=== PATIENT | male | born 1995 | race African-American/Black ===

== ENCOUNTER 2018-09-29 01:43 | Emergency (ER) | payer SELFPAY ==
[~2018-09-29] VITALS: Ht 185.4 cm; Wt 66.0 kg
[2018-09-29] MEDS ORDERED: KETOROLAC 60MG/2ML VIAL IM STA (06:30)
[2018-09-29 07:06] VITALS: BP 124/63
== END 2018-09-29 08:08 | disposition home or self-care (01) ==
LOC: ER 01:43
DX: M25.461 Effusion, right knee (principal); S80.01XA Contusion of right knee, initial encounter; F17.210 Nicotine dependence, cigarettes, uncomplicated; X58.XXXA Exposure to other specified factors, initial encounter; Y93.89 Activity, other specified; Y92.018 Other place in single-family (private) house as the place of occurrence of the external cause
CPT/HCPCS: 73562; 96372; 99283; J1885; Z7610

== ENCOUNTER 2019-06-13 01:15 | Emergency (ER) | payer MEDICAID ==
[~2019-06-13] VITALS: Ht 185.4 cm; Wt 69.0 kg
[2019-06-13] MEDS ORDERED: HYDROCODONE/ACETAMINOPHEN 5/325MG TABLET PO ONE (02:00)
[2019-06-13] MEDS ORDERED: KETOROLAC 30MG/ML VIAL IM ONE (02:00)
[2019-06-13 03:12] VITALS: BP 118/69
== END 2019-06-13 03:24 | disposition home or self-care (01) ==
LOC: ER 01:15
DX: M25.562 Pain in left knee (principal); F12.10 Cannabis abuse, uncomplicated
CPT/HCPCS: 29505; 73562; 96372; 99283; J1885

== ENCOUNTER 2021-10-01 08:47 | Emergency (ER) | payer MEDICAID ==
[~2021-10-01] VITALS: Ht 185.4 cm; Wt 69.0 kg
[2021-10-01 08:59] VITALS: BP 119/81
[2021-10-01] MEDS ORDERED: LIDOCAINE 5% PATCH TOP SCH (09:15)
[2021-10-01] MEDS ORDERED: METHOCARBAMOL 750MG TABLET PO SCH (09:15)
[2021-10-01] MEDS ORDERED: KETOROLAC 60MG/2ML VIAL IM ONE (09:15)
[2021-10-01] MEDS ORDERED: METH-653 MT (10:52)
[2021-10-01] MEDS ORDERED: IBUP-2028 MT (10:52)
[2021-10-01] MEDS ORDERED: LIDO1ADH23 TP (10:52)
== END 2021-10-01 11:22 | disposition home or self-care (01) ==
LOC: ER 08:47
DX: M54.50 Low back pain, unspecified (principal); F12.10 Cannabis abuse, uncomplicated
CPT/HCPCS: 99281

== ENCOUNTER 2024-03-10 10:36 | Emergency (ER) | payer MEDICAID ==
[~2024-03-10] VITALS: Ht 182.9 cm; Wt 75.0 kg
[~2024-03-10 10:36] MED LIST: IBUP-2028 MT; LIDO1ADH23 TP; METH-653 MT
[2024-03-10 10:46] VITALS: O2SAT 99
[2024-03-10 11:51] LABS: CHLORIDE 107 mEq/L (98-107); SODIUM 140 mEq/L (136-145)
[2024-03-10 11:52] LABS: CALCIUM 9.9 mg/dL (8.7-10.4); CARBON DIOXIDE 28 mEq/L (21-32)
[2024-03-10 11:53] LABS: BASOPHILS % 1.5 % (0.0-2.0); DIFFERENTIAL COMMENT 0; EOSINOPHILS % 0.8 % (0.0-5.0); HEMATOCRIT. 42.2 % (42.0-52.0); LYMPHOCYTES % 24.3 % (20.0-50.0); MEAN CORPUSCULAR HEMOGLOBIN 33.5 pg (28.0-32.0); MEAN CORPUSCULAR HGB CONC 33.2 g/dL (31.0-37.0); MEAN CORPUSCULAR VOLUME 100.9 fL (80.0-94.0); MEAN PLATELET VOLUME 8.8 fl (7.4-10.4); MONOCYTES % 6.7 % (2.0-8.0); NEUTROPHILS % 66.7 % (40.0-76.0); PLATELET 239 x1000/uL (130-400); RED BLOOD CELL COUNT 4.18 mill/uL (4.7-6.1); RED CELL DISTRIBUTION WIDTH 13.8 % (11.6-14.6); WHITE BLOOD COUNT 5.1 x1000/uL (4.5-11.0)
[2024-03-10 11:55] LABS: CLARITY URINE CLEAR (CLEAR); COLOR URINE YELLOW (YELLOW); GLUCOSE URINE NEGATIVE (NEGATIVE); KETONES URINE NEGATIVE (NEGATIVE); LEUKOCYTE ESTERASE URINE NEGATIVE (NEGATIVE); NITRITE URINE NEGATIVE (NEGATIVE); OCCULT BLOOD URINE NEGATIVE (NEGATIVE); PROTEIN URINE NEGATIVE (NEGATIVE); SPECIFIC GRAVITY URINE 1.027 (1.005-1.030)
[2024-03-10 11:57] LABS: GLUCOSE 89 mg/dL (70-105); UREA NITROGEN BLOOD 8 mg/dL (9-23)
[2024-03-10 12:03] LABS: ETHANOL BLOOD < 10 mg/dL (<10)
[2024-03-10 12:13] LABS: *AMPHETAMINES SCREEN URINE NEGATIVE (NEGATIVE); *BARBITURATES SCREEN URINE NEGATIVE (NEGATIVE); *BENZODIAZEPINES SCREEN URINE NEGATIVE (NEGATIVE); *COCAINE SCREEN URINE NEGATIVE (NEGATIVE); CANNABINOID URINE SCREEN PRESUMPTIVE POSITIVE (NEGATIVE); ECSTASY MDMA SCREEN URINE NEGATIVE (NEGATIVE); METHADONE URINE SCREEN NEGATIVE (NEGATIVE); OPIATES URINE SCREEN NEGATIVE (NEGATIVE); PHENCYCLIDINE URINE SCREEN NEGATIVE (NEGATIVE)
[2024-03-11 10:49] VITALS: BP 124/82; PULSE 60; RESP 14; TEMP 36.78072; O2SAT 99
== END 2024-03-11 11:07 | disposition home or self-care (01) ==
LOC: ER 10:36
DX: R44.0 Auditory hallucinations (principal); F12.10 Cannabis abuse, uncomplicated; Z20.822 Contact with and (suspected) exposure to COVID-19
CPT/HCPCS: 36415; 80048; 80305; 80320; 81003; 85025; 87426; 99285; G0480